=== PATIENT | female | born 1975 | race Caucasian/White ===

== ENCOUNTER 2019-03-25 11:10 | Emergency (ER) | payer SELFPAY ==
[~2019-03-25] VITALS: Ht 147.3 cm; Wt 46.7 kg
[~2019-03-25 11:10] MED LIST: ANAPROX DS550 MG PO; NKHM; ROBAXIN750 MG PO; TRAMADOL HCL50 MG PO
[2019-03-25 11:43] VITALS: BP 118/65
[2019-03-25] MEDS ORDERED: SEPTDS PO (11:47)
== END 2019-03-25 11:55 | disposition home or self-care (01) ==
LOC: ED 11:10
DX: L03.213 Periorbital cellulitis (principal); F17.200 Nicotine dependence, unspecified, uncomplicated; Z88.0 Allergy status to penicillin

== ENCOUNTER 2020-09-25 11:00 | Emergency (ER) | payer SELFPAY ==
[~2020-09-25] VITALS: Ht 149.8 cm; Wt 46.3 kg
[~2020-09-25 11:00] MED LIST changes: +SEPTDS PO
[2020-09-25 12:12] LABS: MEAN CELL VOLUME 62.2 fl (81.0-99.0); MEAN CORPUSCULAR HGB 13.7 pg (27.0-31.0); MEAN CORPUSCULAR HGB CONC 22.1 g/dl (33.0-37.0); MEAN PLATELET VOLUME 9.7 fl (9.6-12.3); PLATELET COUNT AUTOMATED 483 10*3/uL (130-400); RED BLOOD COUNT 2.33 10*6/uL (4.10-5.10); RED CELL DISTRI WIDTH 21.9 % (0-14.5); WHITE BLOOD COUNT 5.9 10*3/uL (4.8-10.8)
[2020-09-25 12:17] LABS: HEMATOCRIT 14.5 % (37.0-47.0)
[2020-09-25 12:25] LABS: ALBUMIN 3.2 gm/dl (3.1-4.5); ALKALINE PHOSPHATASE 66 U/L (45-117); BUN 7 mg/dl (7-24); CHLORIDE 112 mmol/L (98-107); CREATININE 0.71 mg/dL (0.55-1.02); POTASSIUM 3.4 mmol/L (3.5-5.1); SGOT/AST 11 IU/L (3-35); SGPT/ALT 12 U/L (12-78); SODIUM 142 mmol/L (136-145)
[2020-09-25 12:33] LABS: BASOPHILS 2 % (0-1); MICROCYTOSIS MARKED; PLATELET SUFFICIENCY HIGH (NORMAL); POLYCHROMASIA SLIGHT; TOTAL CELLS COUNTED 100 #CELLS
[2020-09-25 13:45] LABS: BILIRUBIN Negative (Negative); BLOOD 2+ (Negative); CLARITY Clear (Clear); COLOR Yellow (Yellow); GLUCOSE Negative (Negative); KETONE Negative (Negative); LEUKO ESTERASE Negative (Negative); NITRITE Negative (Negative); PH 5.5 (4.5-8.0); SPECIFIC GRAVITY 1.015 (1.001-1.030); UROBILINOGEN 0.2 E.U./dl (0.0-1.0)
[2020-09-25 14:08] LABS: MUCOUS 2+; RBC 31-40 rbc/hpf (0-2); WBC 0-2 wbc/hpf (0-5)
[2020-09-25 14:30] VITALS: BP 115/58
[2020-09-25 15:37] VITALS: BP 107/52
== END 2020-09-25 16:31 | disposition short-term general hospital (02) ==
LOC: ED 11:00
PROVIDERS: Physician Assistant
DX: D64.9 Anemia, unspecified (principal); N93.8 Other specified abnormal uterine and vaginal bleeding; Z88.0 Allergy status to penicillin; Z79.899 Other long term (current) drug therapy

== ENCOUNTER 2021-10-15 07:49 | Emergency (ER) | payer SELFPAY ==
[2021-10-15] VITALS (9 sets, daily range): BP systolic 105–120; BP diastolic 40–67
[~2021-10-15] VITALS: Ht 154.9 cm; Wt 45.4 kg
[2021-10-15 08:22] LABS: HEMATOCRIT 21.9 % (37.0-47.0); MEAN CELL VOLUME 63.7 fl (81.0-99.0); MEAN CORPUSCULAR HGB 14.5 pg (27.0-31.0); MEAN CORPUSCULAR HGB CONC 22.8 g/dl (33.0-37.0); MEAN PLATELET VOLUME 9.8 fl (9.6-12.3); PLATELET COUNT AUTOMATED 389 10*3/uL (130-400); RED BLOOD COUNT 3.44 10*6/uL (4.10-5.10); RED CELL DISTRI WIDTH 21.2 % (0-14.5); WHITE BLOOD COUNT 4.6 10*3/uL (4.8-10.8)
[2021-10-15 08:25] LABS: MANUAL DIFF REFLEX YES
[2021-10-15 08:37] LABS: ALKALINE PHOSPHATASE 42 U/L (45-117); BUN 8 mg/dl (7-24); CHLORIDE 117 mmol/L (98-107); CREATININE 0.69 mg/dL (0.55-1.02); LIPASE 118 U/L (73-393); POTASSIUM 3.6 mmol/L (3.5-5.1); SGOT/AST 6 IU/L (3-35); SGPT/ALT 9 U/L (12-78); SODIUM 143 mmol/L (136-145); TOTAL PROTEIN 6.9 gm/dL (6.4-8.2)
[2021-10-15 08:49] LABS: BETA-HCG, QUANT < 1.0 mIU/mL (1-3)
[2021-10-15 08:52] LABS: BASOPHILS 3 % (0-1); TOTAL CELLS COUNTED 100 #CELLS
[2021-10-15 08:53] LABS: OVALOCYTES FEW; POLYCHROMASIA SLIGHT
[2021-10-15 08:54] LABS: MICROCYTOSIS MODERATE; PLATELET SUFFICIENCY NORMAL (NORMAL); ROULEAUX SLIGHT; SCHISTOCYTES FEW; TARGET CELLS FEW
== END 2021-10-15 14:14 | disposition short-term general hospital (02) ==
LOC: ED 07:49
PROVIDERS: Family Medicine
DX: D64.9 Anemia, unspecified (principal); D25.9 Leiomyoma of uterus, unspecified; F17.200 Nicotine dependence, unspecified, uncomplicated; Z88.0 Allergy status to penicillin

== ENCOUNTER 2022-03-01 12:50 | Emergency (ER) | payer MEDICAID ==
[~2022-03-01] VITALS: Wt 45.4 kg
[2022-03-01 13:06] VITALS: BP 140/76
[2022-03-01] MEDS ORDERED: ONDANSETRON4 MG SL (16:59)
== END 2022-03-01 17:05 | disposition home or self-care (01) ==
LOC: ED 12:50
DX: B34.9 Viral infection, unspecified (principal); Z20.822 Contact with and (suspected) exposure to COVID-19; Z88.0 Allergy status to penicillin; Z90.49 Acquired absence of other specified parts of digestive tract

== ENCOUNTER 2023-12-04 01:51 | Emergency (ER) | payer OTHER ==
[~2023-12-04] VITALS: Ht 152.4 cm; Wt 72.6 kg
[~2023-12-04 01:51] MED LIST changes: +ONDANSETRON4 MG SL
[2023-12-04 02:00] VITALS: BP 138/78
[2023-12-04] MEDS ORDERED: Dexamethasone Sodium Phospha 20 MG/5 ML VIAL IM ONE (02:50)
[2023-12-04] MEDS ORDERED: Ketorolac Tromethamine 60 MG/2 ML VIAL IM ONE (02:50)
[2023-12-04] MEDS ORDERED: MEDROL DOSEPAK4 MG PO (02:53)
[2023-12-04] MEDS ORDERED: MELOXICAM15 MG PO (02:53)
== END 2023-12-04 03:02 | disposition home or self-care (01) ==
LOC: ED 01:51
DX: M72.2 Plantar fascial fibromatosis (principal); Z88.0 Allergy status to penicillin; Z90.49 Acquired absence of other specified parts of digestive tract; Z87.891 Personal history of nicotine dependence

== ENCOUNTER 2024-08-08 07:51 | Emergency (ER) | payer OTHER ==
[~2024-08-08] VITALS: Ht 152.4 cm; Wt 79.4 kg
[~2024-08-08 07:51] MED LIST changes: +MEDROL DOSEPAK4 MG PO; +MELOXICAM15 MG PO
[2024-08-08 08:03] VITALS: BP 137/84
[2024-08-08] MEDS ORDERED: traMADol Hydrochloride 50 MG TAB PO ONE (08:20)
== END 2024-08-08 09:41 | disposition home or self-care (01) ==
LOC: ED 07:51
DX: S60.221A Contusion of right hand, initial encounter (principal); M25.511 Pain in right shoulder; M25.521 Pain in right elbow; Z88.0 Allergy status to penicillin; Z79.899 Other long term (current) drug therapy; Z87.42 Personal history of other diseases of the female genital tract; W22.8XXA Striking against or struck by other objects, initial encounter; Y93.89 Activity, other specified; Y92.512 Supermarket, store or market as the place of occurrence of the external cause; Y99.0 Civilian activity done for income or pay

== ENCOUNTER → 2024-09-17 | Outpatient (CLI) | payer OTHER | END | disposition home or self-care (01) | LOC: MRI 09:00 | PROVIDERS: ATTEND Family Medicine | DX: S66.911A Strain of unspecified muscle, fascia and tendon at wrist and hand level, right hand, initial encounter (principal); S43.91XA Sprain of unspecified parts of right shoulder girdle, initial encounter; S63.501A Unspecified sprain of right wrist, initial encounter; S60.221A Contusion of right hand, initial encounter; S60.211A Contusion of right wrist, initial encounter; M79.89 Other specified soft tissue disorders; X58.XXXA Exposure to other specified factors, initial encounter; Y93.89 Activity, other specified; Y92.89 Other specified places as the place of occurrence of the external cause; Y99.8 Other external cause status ==